=== PATIENT | female | born 1990 | race Caucasian/White ===

== ENCOUNTER 2016-09-30 10:21 | Emergency (ER) | payer SELFPAY ==
[~2016-09-30] VITALS: Ht 165.1 cm; Wt 74.8 kg
[2016-09-30 10:33] VITALS: BP 137/60
== END 2016-09-30 11:19 | disposition home or self-care (01) ==
LOC: ER 10:22
DX: J02.9 Acute pharyngitis, unspecified (principal); M26.609 Unspecified temporomandibular joint disorder, unspecified side; Z88.0 Allergy status to penicillin; Z88.8 Allergy status to other drugs, medicaments and biological substances
CPT/HCPCS: 99283; A4606; Z7610

== ENCOUNTER 2016-10-02 03:21 | Emergency (ER) | payer SELFPAY ==
[~2016-10-02] VITALS: Ht 165.1 cm; Wt 72.6 kg
[2016-10-02 03:32] VITALS: BP 138/88
[2016-10-02] MEDS ORDERED: KETOROLAC TROMETHAMINE 15 MG/ML VIAL ONE (04:10)
[2016-10-02] MEDS ORDERED: DEXAMETHASONE SOD PHOSPHATE 10 MG/ML VIAL ONE (04:10)
[2016-10-02] MEDS ORDERED: KETOROLAC TROMETHAMINE INJ 30 MG/ML VIAL IM ONE (04:30)
[2016-10-02] MEDS ORDERED: DEXAMETHASONE SOD PHOSPHATE 10 MG/ML VIAL IV ONE (04:30)
== END 2016-10-02 05:56 | disposition home or self-care (01) ==
LOC: ER 03:29
DX: J06.9 Acute upper respiratory infection, unspecified (principal); M26.609 Unspecified temporomandibular joint disorder, unspecified side; Z88.0 Allergy status to penicillin; Z88.8 Allergy status to other drugs, medicaments and biological substances
CPT/HCPCS: 96372; 99283; A4606; J1100; J1885; Z7610

== ENCOUNTER 2016-10-03 18:52 | Emergency (ER) | payer SELFPAY ==
[~2016-10-03] VITALS: Ht 165.1 cm; Wt 74.8 kg
[2016-10-03 19:18] VITALS: BP 116/71
[2016-10-03 20:07] LABS: BASOPHILS % (AUTO) 0.4 % (0.0-2.0); DIFF TOTAL % 100 %; EOSINOPHILS # (AUTO) 0.1 /CMM (0.0-0.7); EOSINOPHILS % (AUTO) 0.8 % (0.0-6.0); HEMATOCRIT 38 % (33-45); HEMOGLOBIN 12.9 g/dL (11.5-14.8); LYMPHOCYTES # (AUTO) 1.8 /CMM (0.8-4.8); LYMPHOCYTES % (AUTO) 19.5 % (20.0-44.0); MEAN CORPUSCULAR HEMOGLOBIN 30 PG (26.0-33.0); MEAN CORPUSCULAR HGB CONC 34 g/dl (31.0-36.0); MEAN CORPUSCULAR VOLUME 89 fL (82-100); MONOCYTES # (AUTO) 0.6 /CMM (0.1-1.30); MONOCYTES % (AUTO) 6.9 % (2.0-12.0); NEUTROPHILS # (AUTO) 6.6 /CMM (1.8-8.9); NEUTROPHILS % (AUTO) 72.4 % (43.0-81.0); PLATELET COUNT (AUTO) 264 /CMM (150-450); WHITE BLOOD COUNT (AUTO) 9.1 K/uL (4.3-11.0)
[2016-10-03] MEDS ORDERED: KETOROLAC TROMETHAMINE INJ 60 MG/2 ML VIAL IM ONE (21:00)
[2016-10-03] MEDS ORDERED: KETOROLAC TROMETHAMINE INJ 30 MG/ML VIAL ONE (21:24)
== END 2016-10-03 21:39 | disposition home or self-care (01) ==
LOC: ER 18:53
DX: J02.0 Streptococcal pharyngitis (principal); R07.0 Pain in throat; M26.609 Unspecified temporomandibular joint disorder, unspecified side; Z88.0 Allergy status to penicillin; Z88.8 Allergy status to other drugs, medicaments and biological substances
CPT/HCPCS: 36415; 85025; 86308; 96372; 99284; A4606; J1885; Z7610

== ENCOUNTER 2016-10-05 21:14 | Emergency (ER) | payer SELFPAY ==
[~2016-10-05] VITALS: Ht 165.1 cm; Wt 74.8 kg
[2016-10-05 21:45] VITALS: BP 114/76
[2016-10-05] MEDS ORDERED: CLINDAMYCIN 900 MG/6 ML VIAL ONE (22:51)
[2016-10-05] MEDS ORDERED: DEXAMETHASONE SOD PHOSPHATE 10 MG/ML VIAL ONE (22:51)
[2016-10-05] MEDS ORDERED: CLINDAMYCIN 900 MG in IV D5W 100 ML IM ONE (23:00)
[2016-10-05] MEDS ORDERED: DEXAMETHASONE SOD PHOSPHATE 4 MG/ML VIAL IM ONE (23:00)
== END 2016-10-05 23:14 | disposition home or self-care (01) ==
LOC: ER 21:14
DX: J36 Peritonsillar abscess (principal); Z88.0 Allergy status to penicillin; Z88.8 Allergy status to other drugs, medicaments and biological substances
CPT/HCPCS: 96372 ×2; 99284; A4606; J1100; J3490; Z7610

== ENCOUNTER 2016-12-18 17:50 | Emergency (ER) | payer OTHER ==
[~2016-12-18] VITALS: Ht 165.1 cm; Wt 75.3 kg
--- NOTE | 2016-12-18 17:58 | NUR ---
PT AMBULATORY TO ER BED 11 C/O RLQ ABDOMINAL PAIN X 5 DAYS. DIAGNOSED W/ UTI AND TOOK ANTIBIOTICS W/ NO RELIEF. GOWNED AND PLACED ON MONITOR. AWAITING MD JEREZ.
--- NOTE | 2016-12-18 18:12 | NUR ---
DR LEON AT BEDSIDE FOR EVAL.
[2016-12-18] MEDS ORDERED: HYDROCODONE/APAP 5/325MG 1 EACH TABLET ONE (18:23)
[2016-12-18] MEDS ORDERED: IV SET PRIMARY PUMP SET 1 EA INFUS.SET MC ONE (18:23)
--- NOTE | 2016-12-18 18:24 | NUR ---
IV LINE STARTED BLOOD DRAWN AND SENT TO LAB.
[2016-12-18 18:30] LABS: BASOPHILS # (AUTO) 0.1 /CMM (0.0-0.2); BASOPHILS % (AUTO) 1.6 % (0.0-2.0); EOSINOPHILS # (AUTO) 0.2 /CMM (0.0-0.7); HEMATOCRIT 42 % (33-45); HEMOGLOBIN 13.8 g/dL (11.5-14.8); LYMPHOCYTES # (AUTO) 1.5 /CMM (0.8-4.8); LYMPHOCYTES % (AUTO) 17.5 % (20.0-44.0); MEAN CORPUSCULAR HEMOGLOBIN 30 PG (26.0-33.0); MEAN CORPUSCULAR HGB CONC 33 g/dl (31.0-36.0); MEAN CORPUSCULAR VOLUME 91 fL (82-100); MONOCYTES # (AUTO) 0.4 /CMM (0.1-1.30); MONOCYTES % (AUTO) 5.1 % (2.0-12.0); NEUTROPHILS # (AUTO) 6.3 /CMM (1.8-8.9); NEUTROPHILS % (AUTO) 73.8 % (43.0-81.0); PLATELET COUNT (AUTO) 279 /CMM (150-450); RDW COEFFICIENT OF VARIATION 12.4 (11.5-15.0); RED BLOOD CELL COUNT(AUTO) 4.64 MIL/uL (4.0-5.2); WHITE BLOOD COUNT (AUTO) 8.5 K/uL (4.3-11.0)
[2016-12-18] MEDS ORDERED: HYDROCODONE/APAP 5/325MG 1 EACH TABLET PO ONE (18:30)
[2016-12-18] MEDS ORDERED: IV NS 0.9% 500 ML BAG IV ONE (18:30)
[2016-12-18 18:32] LABS: APPEARANCE,URINE Clear (CLEAR); BILIRUBIN,URINE Negative (NEGATIVE); BLOOD, URINE Small Ery/uL (NEGATIVE); COLOR,URINE Yellow (YELLOW); KETONES,URINE Negative (NEGATIVE); LEUKOCYTE ESTERASE ,URINE Trace (NEGATIVE); NITRITE, URINE Negative (NEGATIVE); PH,URINE 5.5 (5.0-8.0); PROTEIN,URINE Negative (NEGATIVE); UGLUCOSE Negative (NEGATIVE); UROBILINOGEN,URINE 0.2 EU/dL (0.2)
[2016-12-18] MEDS ORDERED: ONDANSETRON HCL/PF 4 MG/2 ML VIAL ONE (18:40)
[2016-12-18 18:44] LABS: INR 0.87 (0.87-1.13); PROTHROMBIN TIME 8.9 SECS (9.5-12.7)
[2016-12-18 18:46] LABS: ALBUMIN 3.7 g/dL (3.4-5.0); BILIRUBIN,DIRECT 0.1 mg/dL (0.0-0.2); BILIRUBIN,TOTAL 0.3 mg/dL (0.2-1.0); CALCIUM, SERUM 8.5 mg/dL (8.5-10.1); CREATININE 0.9 mg/dL (0.6-1.3); POTASSIUM 3.6 mmol/L (3.5-5.1); TOTAL PROTEIN, SERUM 7.4 g/dL (6.4-8.2)
--- NOTE | 2016-12-18 18:53 | NUR ---
U/S TECH AT BEDSIDE FOR PELVIC ULTRASOUND.
[2016-12-18] MEDS ORDERED: ONDANSETRON HCL/PF 4 MG/2 ML VIAL IV ONE (19:00)
--- NOTE | 2016-12-18 19:03 | NUR ---
[facility] - 12/18/16 at 1904 by DILSHAD U/S TECH AT BEDSIDE FOR PELVIC ULTRASOUND.
[2016-12-18 19:08] LABS: ADD URINE CULTURE YES; BACTERIA,URINE None seen /HPF (None Seen); SQUAMOUS EPITHELIAL CELL,UR Moderate /HPF (None Seen)
[2016-12-18 19:14] LABS: PREGNANCY TEST URINE QUAL NEGATIVE (NEGATIVE)
[2016-12-18 20:42] VITALS: BP 136/81
--- NOTE | 2016-12-18 20:42 | NUR ---
Patient discharged to home in stable condition. Written and verbal after care instructions given. Patient verbalizes understanding of instruction.IV removed. Catheter intact and site benign. Pressure and 4x4 applied to site. No bleeding noted.
== END 2016-12-18 20:43 | disposition home or self-care (01) ==
LOC: ER 17:53
DX: N83.201 Unspecified ovarian cyst, right side (principal); Z88.0 Allergy status to penicillin; Z88.8 Allergy status to other drugs, medicaments and biological substances
CPT/HCPCS: 36415; 76856-TC; 80048-TC; 80076-TC; 81000-TC; 83690-TC; 84703-TC; 85025-TC; 85730-TC; 87086-TC; A4606; J2405; Z7610

== ENCOUNTER 2019-06-26 20:23 | Emergency (ER) | payer SELFPAY ==
[~2019-06-26] VITALS: Ht 165.1 cm; Wt 65.8 kg
--- NOTE | 2019-06-26 21:12 | NUR ---
BIBS FOR C/O RLQ ABD PAIN. PMH APPENDECTOMY LAST MONTH. LMP: 06/25/19. - N/V/D
[2019-06-26] MEDS ORDERED: ONDANSETRON HCL/PF 4 MG/2 ML VIAL ONE (21:28)
[2019-06-26] MEDS ORDERED: MORPHINE SULFATE INJ 4 MG/ML DISP.SYRIN ONE (21:29)
[2019-06-26] MEDS ORDERED: IV NS 0.9% 1,000 ML BAG IV ONE (21:30)
[2019-06-26] MEDS ORDERED: MORPHINE SULFATE INJ 2 MG/ML DISP.SYRIN IV ONE (21:30)
[2019-06-26] MEDS ORDERED: ONDANSETRON HCL/PF 4 MG/2 ML VIAL IVP ONE (21:30)
[2019-06-26 21:35] LABS: APPEARANCE,URINE CLEAR (CLEAR); BILIRUBIN,URINE NEGATIVE (NEGATIVE); BLOOD, URINE LARGE Ery/uL (NEGATIVE); COLOR,URINE YELLOW (YELLOW); KETONES,URINE NEGATIVE (NEGATIVE); LEUKOCYTE ESTERASE ,URINE NEGATIVE (NEGATIVE); NITRITE, URINE NEGATIVE (NEGATIVE); PROTEIN,URINE NEGATIVE (NEGATIVE); UGLUCOSE NEGATIVE (NEGATIVE); UROBILINOGEN,URINE 0.2 EU/dL (0.2)
[2019-06-26 21:42] LABS: EOSINOPHILS % (AUTO) 1.3 % (0.0-6.0); HEMATOCRIT 39 % (33-45); HEMOGLOBIN 13.1 g/dL (11.5-14.8); LYMPHOCYTES # (AUTO) 1.1 /CMM (0.8-4.8); MEAN CORPUSCULAR HGB CONC 34 g/dl (31.0-36.0); MEAN CORPUSCULAR VOLUME 92 fL (82-100); MONOCYTES # (AUTO) 0.2 /CMM (0.1-1.30); MONOCYTES % (AUTO) 5.3 % (2.0-12.0); NEUTROPHILS # (AUTO) 2.6 /CMM (1.8-8.9); NEUTROPHILS % (AUTO) 64.4 % (43.0-81.0); PLATELET COUNT (AUTO) 222 /CMM (150-450); RED BLOOD CELL COUNT(AUTO) 4.22 MIL/uL (4.0-5.2)
[2019-06-26 21:58] LABS: CALCIUM, SERUM 8.2 mg/dL (8.5-10.1); CREATININE 0.8 mg/dL (0.6-1.3); POTASSIUM 3.4 mmol/L (3.5-5.1)
[2019-06-26 22:19] LABS: BACTERIA,URINE 1+ /HPF (None Seen); SQUAMOUS EPITHELIAL CELL,UR Few /HPF (None Seen); WBC,URINE 0-2 /HPF (0-3)
[2019-06-26 22:30] LABS: ALBUMIN 3.2 g/dL (3.4-5.0); BILIRUBIN,DIRECT 0.1 mg/dL (0.0-0.2); BILIRUBIN,TOTAL 0.3 mg/dL (0.2-1.0); TOTAL PROTEIN, SERUM 6.7 g/dL (6.4-8.2)
[2019-06-26] MEDS ORDERED: HYDROMORPHONE INJ 0.5 MG/0.5 ML SYRINGE IV ONE (22:30)
[2019-06-26] MEDS ORDERED: HYDROMORPHONE 1 MG/1 ML DISP.SYRIN ONE (22:45)
--- NOTE | 2019-06-26 22:48 | NUR ---
left for ct
[2019-06-26] MEDS ORDERED: IOHEXOL-300 100 ML VIAL IV ONE (22:50)
[2019-06-26] MEDS ORDERED: IV NS 0.9% 250 ML IV ONE (22:51)
[2019-06-26] MEDS ORDERED: CT SWABBABLE VALVE TRANS SET 1 EA INFUS.SET MC ONE (22:51)
--- NOTE | 2019-06-26 23:43 | NUR ---
IV removed. Catheter intact and site benign. Pressure and 4x4 applied to site. No bleeding noted.Patient discharged to home in stable condition. Rx and Written and verbal after care instructions given. Patient verbalizes understanding of instruction. a friend will provide ride to the pt
[2019-06-26 23:44] VITALS: BP 118/71
--- NOTE | 2019-06-26 23:44 | NUR ---
pt was refused the offer for a copy of the CT or the CD
== END 2019-06-26 23:45 | disposition home or self-care (01) ==
LOC: ER 20:26
DX: I88.0 Nonspecific mesenteric lymphadenitis (principal); Z90.89 Acquired absence of other organs; Z88.0 Allergy status to penicillin; Z88.8 Allergy status to other drugs, medicaments and biological substances; Z60.2 Problems related to living alone
CPT/HCPCS: 36415; 74177; 80048; 80076; 81001; 83690; 84703; 85025; 96374; 96375; 99284; J1170; J2270; J2405; J7030; J7050; Q9967; 81000-TC

== ENCOUNTER 2021-03-02 16:08 | Emergency (ER) | payer MEDICAID ==
[~2021-03-02] VITALS: Ht 165.1 cm; Wt 65.8 kg
[2021-03-02 16:21] VITALS: BP 105/75
[2021-03-02] MEDS ORDERED: IBUPROFEN 600 MG TABLET PO ONE (17:00)
[2021-03-02] MEDS ORDERED: IBUPROFEN 600 MG TABLET ONE (17:01)
--- NOTE | 2021-03-02 17:50 | NUR ---
Patient discharged to home in stable condition. Written and verbal after care instructions given. Patient verbalizes understanding of instruction.
== END 2021-03-02 17:50 | disposition home or self-care (01) ==
LOC: ER 16:20
DX: S30.0XXA Contusion of lower back and pelvis, initial encounter (principal); S40.022A Contusion of left upper arm, initial encounter; Z90.89 Acquired absence of other organs; Z88.0 Allergy status to penicillin; Z88.8 Allergy status to other drugs, medicaments and biological substances; Z60.2 Problems related to living alone; W34.09XA Accidental discharge from other specified firearms, initial encounter; Y93.89 Activity, other specified; Y92.89 Other specified places as the place of occurrence of the external cause; Y99.8 Other external cause status
CPT/HCPCS: 73060-TC; 73110; 73130-TC

== ENCOUNTER 2025-01-26 06:00 | Emergency (ER) | payer MEDICAID, OTHER ==
[~2025-01-26] VITALS: Ht 165.1 cm; Wt 74.4 kg
[2025-01-26] MEDS ORDERED: CLINDAMYCIN HCL 150 MG CAPSULE ONE (06:42)
[2025-01-26] MEDS ORDERED: IBUPROFEN 400 MG TABLET ONE (06:42)
[2025-01-26] MEDS ORDERED: IBUP-1492 PO (06:47)
[2025-01-26] MEDS ORDERED: CLIN300C12 PO (06:47)
[2025-01-26] MEDS: CLINDAMYCIN HCL 150 MG CAPSULE PO ONE (06:48)
[2025-01-26] MEDS: IBUPROFEN 400 MG TABLET PO ONE (06:48)
[2025-01-26 06:53] VITALS: BP 121/72; TEMP 99.1; O2SAT 98
== END 2025-01-26 06:53 | disposition home or self-care (01) ==
LOC: ER 06:03
DX: J02.9 Acute pharyngitis, unspecified (principal); Z88.0 Allergy status to penicillin; Z90.49 Acquired absence of other specified parts of digestive tract; Z60.2 Problems related to living alone; Z88.8 Allergy status to other drugs, medicaments and biological substances